=== PATIENT | female | born 1955 | race Caucasian/White ===

== ENCOUNTER 2016-12-05 10:16 | Outpatient (CLI) | payer MEDICAID ==
[2013-11-22 12:43] VITALS: BMI 43.0
[~2016-12-05 10:16] MED LIST: LISINOPRIL10 MG PO; MAGNESIUM OXID500 MG PO; VITAMIN D31000 UNIT OR; ZANAFLEX4 MG OR
== END 2016-12-05 11:05 ==
LOC: D.MAMMO 10:16
DX: Z12.31 Encounter for screening mammogram for malignant neoplasm of breast (principal)